=== PATIENT | female | born 1970 | race Two or more races ===

== ENCOUNTER 2022-09-16 19:14 | Emergency (ER) | payer MEDICAID ==
[~2022-09-16] VITALS: Ht 165.1 cm; Wt 61.2 kg
[2022-09-16] MEDS ORDERED: IBUPROFEN 600 MG TAB PO ONE (21:45)
[2022-09-16] MEDS ORDERED: DexAMETHasone SOD PHOS 10MG/1ML VIAL INJ IM ONE (21:45)
[2022-09-17] MEDS ORDERED: IBUP-1455 PO (01:08)
[2022-09-17] MEDS ORDERED: ACET500T58 PO (01:08)
[2022-09-17] MEDS ORDERED: LORA-483 GT (01:08)
[2022-09-17 02:40] VITALS: BP 127/68
== END 2022-09-17 02:49 | disposition home or self-care (01) ==
LOC: ER 19:14
DX: U07.1 COVID-19 (principal)
CPT/HCPCS: 36415; 87070; 87426; 87804; 87880; 96372; 99283; J1100